=== PATIENT | male | born 1955 | race African-American/Black ===

== ENCOUNTER 2018-06-15 12:45 | Emergency (ER) | payer MEDICAID, OTHER ==
[~2018-06-15] VITALS: Ht 162.6 cm; Wt 59.0 kg
[2018-06-15] MEDS ORDERED: IBUP-1007 PO (13:08)
[2018-06-15] MEDS ORDERED: AMOX875T PO (13:08)
--- NOTE | 2018-06-15 13:08 | PHYS DOC ---
Past Medical History Past Medical History: Hypertension Past Surgical History: Other Additional Past Surgical Histo: (r) ankle repair Alcohol Use: Occasionally Drug Use: None Adult General Chief Complaint Chief Complaint: EARACHE/EAR PAIN HPI HPI Patient is a 63 year old AA male who presents to the ER today with complaints of left ear pain for the last week. Patient denies any injury, drainage, or bleeding from left ear. He denies any decreased hearing. Patient states he has been taking Tylenol for relief of pain with little benefit, currently his pain as a 10 out of 10 on the pain scale. Patient denies any fever, nausea, vomiting , diarrhea, abdominal pain, sore throat, or body aches. Patient states he is a smoker, reports that he has a dry smoker's cough, he denies any shortness of breath or wheezing. Review of Systems Review of Systems Constitutional: Denies fever or chills [] Eyes: Denies change in visual acuity, redness, or eye pain [] HENT: Denies sore throat; see HPI Respiratory: See HPI Cardiovascular: No additional information not addressed in HPI [] GI: Denies abdominal pain, nausea, vomiting, or diarrhea [] Musculoskeletal: Denies back pain or joint pain [] Integument: Denies rash or skin lesions [] Neurologic: Denies headache, focal weakness or sensory changes [] All other systems were reviewed and found to be within normal limits, except as documented in this note. Allergies Allergies Allergies Coded Allergies Type Severity Reaction Last Updated Verified No Known Drug Allergies 06/15/18 No Physical Exam Physical Exam Constitutional: Well developed, well nourished, no acute distress, non-toxic appearance. [] HENT: Normocephalic, atraumatic, bilateral external ears normal, L TM infected no perforation, R TM normal oropharynx moist, no oral exudates, nose normal. [] Eyes: conjunctiva normal, no discharge. [] Neck: Normal range of motion, no tenderness, supple, no stridor. [] Cardiovascular:Heart rate regular rhythm, no murmur [] Lungs & Thorax: Bilateral breath sounds clear to auscultation [] Skin: Warm, dry, no erythema, no rash. [] Extremities: No cyanosis, no clubbing, ROM intact, no edema. [] Neurologic: Alert and oriented X 3, normal motor function, normal sensory function, no focal deficits noted. [] Psychologic: Affect normal, judgement normal, mood normal. [] EKG EKG [] Radiology/Procedures Radiology/Procedures [] Course & Med Decision Making Course & Med Decision Making Pertinent Labs and Imaging studies reviewed. (See chart for details) [] Dragon Disclaimer Dragon Disclaimer This electronic medical record was generated, in whole or in part, using a voice recognition dictation system. Departure Departure Impression: Primary Impression: Acute suppurative otitis media of left ear without spontaneous rupture of tympanic membrane Disposition: HOME, SELF-CARE Condition: STABLE Referrals: NO PCP (PCP) Patient Instructions: Otitis Media, Adult, [id number] Additional Instructions: Fill the prescriptions and use as directed. Do not clean your ears with Q-tips, or put anything in your ears. Follow-up with your primary care doctor if symptoms persist, return to ER if symptoms worsen Scripts Ibuprofen (IBUPROFEN) 600 Mg Tablet 600 MG PO PRN Q6HRS PRN for INFLAMMATION for 5 Days, #20 TAB 0 Refills Prov: PALLAVI BURROUGHS [employer] REPAIRER 06/15/18 Amoxicillin (AMOXICILLIN) 875 Mg Tablet 1 TAB PO BID, #14 TAB 0 Refills Prov: PALLAVI BURROUGHS [employer] REPAIRER 06/15/18 Problem Qualifiers Primary Impression: Acute suppurative otitis media of left ear without spontaneous rupture of tympanic membrane Recurrence: not specified as recurrent Qualified Codes: H66.002 - Acute suppurative otitis media without spontaneous rupture of ear drum, left ear PALLAVI BURROUGHS [employer] REPAIRER Jun 15, 2018 13:08
[2018-06-15 13:20] VITALS: BP 134/81
[2018-06-15] MEDS ORDERED: IBUPROFEN 600 MG TABLET. PO ONE (13:30)
== END 2018-06-15 13:30 | disposition home or self-care (01) ==
LOC: ER 12:45
DX: H66.002 Acute suppurative otitis media without spontaneous rupture of ear drum, left ear (principal); I10 Essential (primary) hypertension
CPT/HCPCS: 99283